=== PATIENT | female | born 1955 | race Hispanic/Latino ===

== ENCOUNTER → 2017-12-21 | Outpatient (CLI) | payer OTHER ==
[~2017-12-21] MED LIST: ACET-2247 PO; LOSA50TA37 PO; MULT-1192 PO; NAPR-1084 PO; ROSU20TA38 PO; [UNRECOGNIZED DRUG - CODE] PO
== END | disposition home or self-care (01) ==
LOC: RAH 10:36
PROVIDERS: ATTEND Orthopaedic Surgery
DX: M75.121 Complete rotator cuff tear or rupture of right shoulder, not specified as traumatic (principal); M67.411 Ganglion, right shoulder; R59.1 Generalized enlarged lymph nodes
CPT/HCPCS: 73221

== ENCOUNTER 2018-06-17 08:05 | Emergency (ER) | payer OTHER ==
[~2018-06-17 08:05] MED LIST changes: -ACET-2247 PO; +ACET-66 PO; +EXEMESTANE; +FENO134C PO; +LOSA50TA25 PO; -LOSA50TA37 PO; -MULT-1192 PO; +MULT-961 PO; -NAPR-1084 PO; +NAPR220C15 PO; +ONDA4TAB10 PO; +ROSU20TA30 PO; -ROSU20TA38 PO; -[UNRECOGNIZED DRUG - CODE] PO
[2018-06-17] MEDS ORDERED: ACETAMINOPHEN 325 MG TAB ONE (08:40)
[2018-06-17 09:20] LABS: BILIRUBIN,URINE NEGATIVE (NEGATIVE); COLOR,URINE YELLOW (YELLOW); GLUCOSE, URINE (UA) NEGATIVE (NEGATIVE); KETONES,URINE NEGATIVE (NEGATIVE); LEUKOCYTE ESTERASE ,URINE SMALL (NEGATIVE); NITRATE,URINE NEGATIVE (NEGATIVE); OCCULT BLOOD,URINE MODERATE (NEGATIVE); PROTEIN,URINE NEGATIVE (NEGATIVE)
[2018-06-17 09:23] LABS: APPEARANCE,URINE CLOUDY (CLEAR)
[2018-06-17 09:25] LABS: BASOPHILS % (AUTO) 0.2 % (0.0-5.0); EOSINOPHILS % (AUTO) 0.2 % (0.0-8.0); HEMATOCRIT 39.2 % (36-48); MEAN CORPUSCULAR HEMOGLOBIN 27.7 pg (27.0-33.0); MEAN CORPUSCULAR HGB CONC 32.6 g/dL (32.0-36.0); MEAN CORPUSCULAR VOLUME 84.9 fL (79-99); MONOCYTES % (AUTO) 3.4 % (3.0-13.0); NEUTROPHILS % (AUTO) 87.2 % (40.0-77.0); PLATELET COUNT (AUTO) 264 K/uL (130-400); RED BLOOD CELL COUNT(AUTO) 4.62 MIL/uL (4.00-5.50); RED CELL DISTRIBUTION WIDTH 15.3 % (11.0-15.5); WHITE BLOOD COUNT (AUTO) 16.4 K/uL (4.8-10.8)
[2018-06-17] MEDS ORDERED: MORPHINE SULFATE 4 MG/1ML SYG ONE (09:27)
[2018-06-17] MEDS ORDERED: ONDANSETRON HCL 4 MG/2 ML VIAL ONE (09:27)
[2018-06-17 09:33] LABS: CREATININE 0.9 mg/dL (0.5-1.5); POTASSIUM 4.8 mmol/L (3.5-5.1)
[2018-06-17 09:36] LABS: INR 0.88 (0.85-1.15); PARTIAL THROMBOPLASTIN TIME 25.3 SEC (26.3-35.5); PROTHROMBIN TIME 9.3 SEC (9.6-11.6)
[2018-06-17 09:39] LABS: ALBUMIN 2.8 g/dL (3.5-5.0); BILIRUBIN,TOTAL 0.4 mg/dL (0.2-1.0); TOTAL PROTEIN, SERUM 6.5 g/dL (6.0-8.3)
[2018-06-17 09:47] LABS: BACTERIA,URINE Many /HPF (None Seen)
[2018-06-17 09:48] LABS: RBC,URINE 0-1 /HPF (0-1); SQUAMOUS EPITHELIAL CELL,UR 0-2 /HPF (0-2)
[2018-06-17] MEDS ORDERED: CEFTRIAXONE SODIUM 1 GM ONE (09:58)
[2018-06-17] MEDS ORDERED: SODIUM CHLORIDE 0.9% 50 ML IV ONE (09:58)
== END 2018-06-17 10:39 | disposition home or self-care (01) ==
LOC: EDH 08:05
DX: M54.6 Pain in thoracic spine (principal); R51 Headache; N39.0 Urinary tract infection, site not specified; M19.90 Unspecified osteoarthritis, unspecified site; R79.1 Abnormal coagulation profile; Z98.890 Other specified postprocedural states; Z88.8 Allergy status to other drugs, medicaments and biological substances; Z87.891 Personal history of nicotine dependence
CPT/HCPCS: 36415; 70450; 80053; 81001; 85025; 85610; 85730; 96374; 96375; 99285; J0696; J2270; J2405

== ENCOUNTER 2018-09-19 22:23 | Emergency (ER) | payer OTHER | END 2018-09-20 00:21 | disposition home or self-care (01) | LOC: EDH 22:23 | DX: K59.00 Constipation, unspecified (principal); M19.90 Unspecified osteoarthritis, unspecified site; Z85.3 Personal history of malignant neoplasm of breast; Z88.1 Allergy status to other antibiotic agents; Z88.8 Allergy status to other drugs, medicaments and biological substances ==